=== PATIENT | male | born 1960 | race American Indian/Alaskan Native ===

== ENCOUNTER 2016-12-28 08:17 | Day surgery (SDC) | payer OTHER ==
[2016-05-05 09:24] VITALS: BMI 33.2
[2016-12-28] MEDS ORDERED: Lactated Ringer's 1,000 ML IV ONE (09:12)
[2016-12-28 09:19] VITALS: TEMP 98
[2016-12-28] MEDS ORDERED: Propofol 10 mg/ml Inj (20 ML) ONE ×2 (10:41→11:18)
[2016-12-28] MEDS ORDERED: Midazolam 2 MG/2 ML VIAL ONE (11:19)
[2016-12-28] MEDS ORDERED: Glucagon Recombinant 1 mg Inj ONE (11:34)
[2016-12-28 12:16] VITALS: BP 95/58; PULSE 72; RESP 22; O2SAT 99
[2016-12-28] MEDS ORDERED: BSS 15 ML 30 ML IR ONE (12:34)
== END 2016-12-28 13:00 | disposition home or self-care (01) ==
LOC: H.ENDO 08:17
PROVIDERS: ATTEND Internal Medicine Gastroenterology
DX: Q27.33 Arteriovenous malformation of digestive system vessel (principal); K31.89 Other diseases of stomach and duodenum; K29.70 Gastritis, unspecified, without bleeding; K31.819 Angiodysplasia of stomach and duodenum without bleeding; K55.20 Angiodysplasia of colon without hemorrhage; Z86.73 Personal history of transient ischemic attack (TIA), and cerebral infarction without residual deficits; E11.9 Type 2 diabetes mellitus without complications; I10 Essential (primary) hypertension; D50.9 Iron deficiency anemia, unspecified
CPT/HCPCS: 44361; 82948; 88305; J1610; J2250; J2704; J3010; J7120